=== PATIENT | male | born 1995 | race Caucasian/White ===

== ENCOUNTER → 2024-10-08 09:02 | Outpatient (BNVA) | payer OTHER, SELFPAY | PROVIDERS: Visit Provider Registered Nurse | DX: Z13.89 Encounter for screening for other disorder (principal) | CPT/HCPCS: 84450; 84460; 86803; 87389; 99203 ==

== ENCOUNTER → 2024-11-19 11:55 | Outpatient (BNVA) | payer OTHER, SELFPAY | DX: Z13.89 Encounter for screening for other disorder (principal) | CPT/HCPCS: 84450; 84460; 86803; 87389; 99211 ==